=== PATIENT | female | born 1975 | race Two or more races ===

== ENCOUNTER → 2025-08-15 | Outpatient (CLI) | payer OTHER, SELFPAY ==
--- NOTE | 2025-08-15 10:30 | XR_ITS ---
Examination: Breast ultrasound complete, bilateral Date and time of exam: August 15, 2025, 1023 hours INDICATIONS: Bilateral breast swelling and pain beginning 1 year ago Technique: Real-time grayscale ultrasonographic imaging bilateral breasts, including all 4 quadrants as well as nipple retroareolar and axillary regions. Findings: Sonographic images right breast 1:00 cyst 13 x 12 mm 7:00 cyst 17 x 17 mm No solid nodules Sonographic images left breast 10:00 cyst with septation 24 x 22 mm No solid nodules Multiple bilateral smaller cysts as well as dilated ducts IMPRESSION: BI-RADS Category 2: Benign findings
--- NOTE | 2025-08-15 11:45 | XR_ITS ---
Examination: Diagnostic digital mammography, bilateral Computer aided detection 3-D breast Tomosynthesis, bilateral Date and time of exam: August 15, 2025, 1038 hours Compared to mammograms dating to July 07, 2019 INDICATION: Patient states lump in the left breast noticed beginning 6 months ago Technique: Nonmagnified MLO, CC views of the breasts to been obtained, reconstructed from 3-D Tomosynthesis images. R2 computer aided detection program utilized for evaluation of suspicious masses and/or abnormal calcifications. 3-D Tomosynthesis images obtained. Findings: The breasts are heterogeneously dense, which may obscure small masses Benign calcifications No suspicious masses Impression: BI-RADS Category 2: Benign findings Recommend yearly follow-up mammography If palpable abnormality left breast persists, recommend repeat 3 to 6-month follow-up left breast sonogram.
== END | disposition home or self-care (01) ==
LOC: CDIM 10:04
DX: R92.323 Mammographic fibroglandular density, bilateral breasts (principal); R92.8 Other abnormal and inconclusive findings on diagnostic imaging of breast
CPT/HCPCS: 76641; 77062; 77066; G0279